=== PATIENT | female | born 1980 | race Caucasian/White ===

== ENCOUNTER 2020-07-19 19:36 | Emergency (ER) | payer OTHER, SELFPAY ==
--- NOTE | 2020-07-19 19:44 | ED.URI ---
HPI - URI/Sore Throat General Chief Complaint: Anxiety Stated Complaint: Shortness of Breath Time Seen by Provider: 07/19/20 19:45 Source: patient Mode of arrival: ambulatory Limitations: no limitations History of Present Illness HPI Narrative: Sameera Hinds is a 39 yo female with no PMH comes to [facility] with complaints of shortness of breath has been going on all day long; not acutely her today; she is speaking full sentences. She states her doctor told her to come in to be checked out. No fever no abnormal vital signs, has not been ill recently, treated for any condition currently by primary care physician, is not on any medication Related Data Home Medications Medication Instructions Recorded Confirmed No Home Medications 07/19/20 07/19/20 Allergies Allergy/AdvReac Type Severity Reaction Status Date / Time No Known Allergies Allergy Mild Unverified 07/19/20 19:49 Review of Systems Review of Systems: Narrative: CONSTITUTIONAL: Denies fever, chills, sweats. EYES: Denies visual changes, redness, discharge. ENT: Denies rhinorrhea, congestion, sore throat, otalgia. CARDIOVASCULAR: Denies chest pain, palpitations, edema. RESPIRATORY: Denies dyspnea, wheezing, cough; mild shortness of breath GASTROINTESTINAL: Denies abdominal pain, nausea, vomiting, diarrhea. GENITOURINARY: Denies dysuria, hematuria, abnormal discharge SKIN: Denies rash or itching. NEUROLOGIC: Denies numbness, or focal weakness. PSYCHIATRIC: Denies anxiety or depression. History of panic attacks Some arm tingling intermittently PMFSH Past Medical History Medical History Panic attacks Social History Social History (Updated 07/19/20 @ 19:51 by Becka Bassett CNP) Smoking status: Never smoker Substance use: current Comments At time of signature, I agree with nursing past medical, surgical, social and family history. There is no relevant family history pertinent to the presenting complaint. Exam Narrative: Exam Narrative: GENERAL: This is a well-nourished, well-developed patient, in no apparent distress. Is not short of breath in triage is able to speak in full sentences HEAD: normocephalic, atraumatic. EYES: Sclera clear/white. Vision is grossly intact. EARS: External ears normal, . Hearing grossly intact. NOSE: External nose normal without nasal discharge, nares without redness, no rhinorrhea. THROAT: Mucous membranes moist, NECK: Neck supple, non-tender CARDIOVASCULAR: Regular rate and rhythm without murmurs, gallops, or rubs. RESPIRATORY: Clear to auscultation. Breath sounds equal bilaterally. No wheezes, rales, or rhonchi. GASTROINTESTINAL: Abdomen soft, non-tender, SKIN: warm, intact with no suspicious lesions or rash, good texture and turgor. NEURO: awake, alert, and oriented to person, place and time. There were no obvious focal neurologic abnormalities. Steady gait EXTREMITIES: Normal range of motion. BACK: Nontender without deformity Course Course Emergency Course: Patient comes here with complaints of shortness of breath; is not in any apparent distress Breath sounds good-equal bilaterally- 100%?sats EKG shows heart rate is 69, OH intervals 122, no QT prolongation, no axis deviation, no abnormal ST elevations If patient continues or has recurrent shortness of breath should follow-up with her primary care physician for blood work or go to ER for follow-up Vital Signs Vital signs: Vital Signs Temperature 97.5 F L 07/19/20 19:47 Pulse Rate 69 07/19/20 19:47 Respiratory Rate 18 07/19/20 19:47 Blood Pressure 98/53 L 07/19/20 19:47 Pulse Oximetry 100 07/19/20 19:47 Temperature 97.5 F L 07/19/20 19:47 Pulse Rate 69 07/19/20 19:47 Respiratory Rate 18 07/19/20 19:47 Blood Pressure 98/53 L 07/19/20 19:47 Pulse Oximetry 100 07/19/20 19:47 MDM - URI/Sore Throat Differential Diagnosis Differential diagnosis: Likely other (Anxiety v
[2020-07-19 19:47] VITALS: BP 98/53; PULSE 69; RESP 18; TEMP 36.4; O2SAT 100
--- NOTE | 2020-07-19 19:57 | ECG_ITS ---
Measurements Intervals [place] Rate: 69 P: 26 ME: 122 QRS: 74 QRSD: 89 T: 57 QT: 386 QTc: 415 Interpretive Statements SINUS RHYTHM WITH SINUS ARRHYTHMIA CANNOT RULE OUT SEPTAL INFARCT, AGE INDETERMINATE BASELINE ARTIFACT- II, III, AVR, AVL, AVF ABNORMAL ECG Electronically Signed On 07-19-2020 20:08:31 CDT by Thierry Powell D.O.
== END 2020-07-19 20:04 | disposition home or self-care (01) ==
PROVIDERS: Emergency Provider Nurse Practitioner
DX: R06.4 Hyperventilation (principal); R06.02 Shortness of breath
CPT/HCPCS: 93005; 99213; G0463